=== PATIENT | male | born 1940 | race Caucasian/White ===

== ENCOUNTER 2019-05-31 14:06 | Outpatient (CLI) | payer MEDICARE ==
[~2019-05-31 14:06] MED LIST: Iopamidol 370 76% 100 ML VIAL ONE
--- NOTE | 2019-05-31 15:49 | CT ---
CT abdomen and pelvis with IV contrast HISTORY: Bladder cancer. COMPARISON: 11/11/2015. FINDINGS: The lung bases are clear. Small hiatal hernia. Cysts of the kidneys are stable. Calcificati on throughout the arterial structures. Nonspecific reactive appearing lymph nodes throughout the mesentery are similar to the previous exam. Postoperative changes of the pelvis. Lobular shape of the urinary bladder has the appearance of a rec onstructed bladder. Mild bilateral hydroureteronephrosis. No stones now visible. Degenerative and postoperative changes lumbar spine. No focal masses evident. IMPRESSION: Mild bilateral hydroureteronephrosis, postoperative changes, and other chronic-type findi ngs are stable. No evidence of recurrent neoplasm. Atherosclerosis. Small hiatal hernia.
== END 2019-05-31 14:07 | disposition home or self-care (01) ==
LOC: MADCT 14:06
PROVIDERS: ATTEND Urology
DX: C67.8 Malignant neoplasm of overlapping sites of bladder (principal); I70.0 Atherosclerosis of aorta; K44.9 Diaphragmatic hernia without obstruction or gangrene; N13.30 Unspecified hydronephrosis; N28.1 Cyst of kidney, acquired; M47.816 Spondylosis without myelopathy or radiculopathy, lumbar region; Z98.890 Other specified postprocedural states
CPT/HCPCS: 36415; 74178; 82565; Q9967

== ENCOUNTER 2023-05-08 08:51 | Outpatient (CLI) | payer MEDICARE | END 2023-05-08 08:52 | disposition home or self-care (01) | LOC: MADULT 08:51 | PROVIDERS: ATTEND Urology | DX: C67.8 Malignant neoplasm of overlapping sites of bladder (principal); N13.30 Unspecified hydronephrosis | CPT/HCPCS: 76770 ==

== ENCOUNTER 2025-04-28 09:18 | Outpatient (CLI) | payer MEDICARE ==
[2025-04-28 09:31] LABS: #Basophils 0.1 thou/uL (0.0-0.2); #Eosinophils 0.1 thou/uL (0.0-0.7); #Lymphocytes 1.5 thou/uL (1.20-3.40); #Monocytes 1.0 thou/uL (0.11-0.59); #Neutrophils 6.4 thou/uL (1.40-6.50); %Basophils 1.3 % (0.0-1.0); %Eosinophils 1.6 % (0.0-10.0); %Lymphocytes 16.4 % (21.0-51.0); %Monocytes 10.4 % (0.0-10.0); %Neutrophils 70.3 % (42.0-75.0); Hematocrit 44.2 % (42.0-52.0); Hemoglobin 13.9 g/dL (14.0-18.0); Mean Corpuscular Hemoglobin 30.7 pg (27.0-31.0); Mean Corpuscular Volume 97.2 fl (78.0-98.0); Platelet Count 161 10x3/uL (130-400); Red Blood Cell (RBC) Count 4.54 mill/uL (4.70-6.10); White Blood Cell (WBC) Count 9.1 10x3/uL (4.8-10.8)
[2025-04-28 09:49] LABS: ALT (SGPT) 9 U/L (Less than 45); AST (SGOT) 16 U/L (11-34); Albumin 3.6 g/dL (3.1-4.5); Alkaline Phosphatase 67 U/L (40-110); Anion Gap 13 mmol/L (10-20); BUN (Urea Nitrogen) 26 mg/dL (8.4-25.7); Bilirubin, Total 0.3 mg/dL (0.3-1.2); Calc. Creatinine Clearance 0 mL/min (70-130); Calcium 8.6 mg/dL (7.8-10.44); Carbon Dioxide 26 mmol/L (23-31); Chloride 109 mmol/L (98-107); Globulin 2.4 g/dL (2.4-3.5); Glucose 100 mg/dL (83-110); Potassium 4.0 mmol/L (3.5-5.1); Sodium 144 mmol/L (136-145)
== END 2025-04-28 09:19 | disposition home or self-care (01) ==
LOC: MADLAB 09:18
DX: C67.8 Malignant neoplasm of overlapping sites of bladder (principal)
CPT/HCPCS: 36415; 80053; 85025; 88112